=== PATIENT | male | born 1935 | race Caucasian/White ===

== ENCOUNTER 2025-03-25 14:16 | Inpatient (IN) | payer OTHER ==
[~2025-03-25] VITALS: Ht 165.1 cm; Wt 81.6 kg
--- NOTE | 2025-03-25 14:25 | NUR ---
SE RECIBE P[ACIENTE CONCIENTE, DESORIENTADO. PACIENTE ES TRAIDO EN AMBULANCIA ACOMPANADO POR FAMILIAR. FAMILIAR REFIERE QUE EL NICKIE DE FABIEN EN LA NOCHE LE FUE ADMINISTRADO POR PRIMERA VEZ EL MEDICAMENTO ATIVAN DE 1MG RECETADO POR SAUNDERS NEUROLOGO POR LA CONDICION DE ALZHEIMER. EL NICKIE DE HOY COMENZO A PRESENTAR UN CUADRO DE DESORIENTACION, DONDE NO SIGUE COMANDOS Y RESPONDE DE FORMA DESORGANIZADA A LOS ESTIMULOS. EL FAMILIAR SE COMUNICA CON NEUROLOGO DR. KAYLA BRINK, QUIEN LE ORIENTA ACUDIRA RUDY DE EMERGENCIAS. SE MIDEN SIGNOS VITALES. SE REFIERE PACIENTE PARA EVALUACION MEDICA. PACIENTE BAJO OBSERVACION CON CAMA BAJA Y BARANDAS ELEVADAS ACOMPANADO POR FAMILIAR.
[2025-03-25] MEDS ORDERED: CEFTRIAXONE SODIUM 1,000 MG VIAL ONE (15:52)
[2025-03-25] MEDS ORDERED: CEFTRIAXONE SODIUM 1,000 MG VIAL IV ONE (16:00)
[2025-03-25] MEDS ORDERED: 0.9 % SODIUM CHLORIDE 1,000 ML IV ONE (16:00)
--- NOTE | 2025-03-25 16:00 | NUR ---
SE ORIENTA PTE SOBRE TX MEDICO EL CUAL REFIERE ENTENDER.SE LE EXTRAEN MUESTRAS BAJO MEDIDAS ASEPTICAS,SE CANALIZA Y SE ADMINISTRA MEDICAMENTO IRA ORDEN MEDICA.SE NOTIFICA CT PENDIENTE.
[2025-03-25 16:35] LABS: BASO % 0.7 % (0.1-1.2); EOS # 0.27 (0.04-0.54); EOS % 3.8 % (0.7-7.0); LYMPH # 1.40 (1.18-3.74); LYMPH % 19.6 % (19.3-53.1); MEAN PLATELET VOLUME 9.50 fl (9.4-12.4); MONO # 0.62 (0.24-0.82); MONO % 8.7 % (4.7-12.5); NEUT # 4.81 (1.56-6.13); NEUT % 67.1 % (34.0-71.1); RED CELL DISTRIBUTION WIDTH 14.0 % (11.6-14.4)
[2025-03-25 17:04] LABS: INR 1.03
[2025-03-25 17:10] LABS: ALT/SGPT 25.0 U/L (12-78); AST/SGOT 22.0 U/L (15-37); BILIRUBIN TOTAL 0.8 mg/dL (0.3-1.2); BUN CREA RATIO 20.0 (7.0-25.0); CREATININE SERUM 0.99 mg/dL (0.70-1.30); GFR 71.18; GLOBULINA 3.3 G/DL (2.4-3.5); GLUCOSE FASTING 107.0 mg/dL (65-100); OSMOLALITY SERUM 290.0 MOSM/KG (275-295)
[2025-03-25 18:28] LABS: URINE APPEARANCE Clear; URINE BILIRRUBIN Negative (NEGATIVE); URINE BLOOD Small; URINE COLOR Yellow; URINE GLUCOSE Negative (NEGATIVE); URINE KETONE 15 (NEGATIVE); URINE LEUKOCYTE Negative; URINE NITRATE Negative; URINE PROTEIN Negative (NEGATIVE); URINE UROBILINOGEN 0.2 E.U./dl
[2025-03-25 18:32] LABS: URINE BACTERIA 86.4 uL (0.0-1933); URINE EPITHELIAL CELLS 10.4 uL (0.0-38.8); URINE RBC 31.3 uL (0.0-20.8); URINE WBC 72.4 uL (0.0-23.2)
[2025-03-25 18:41] LABS: URINE CAST 0.29 uL (0.0-1.40)
[2025-03-25] MEDS ORDERED: LEVALBUTEROL HCL 1.25 MG/3 ML SOLUTION IH SCH ×2 (19:11→21:55)
[2025-03-25] MEDS ORDERED: AZITHROMYCIN 500 MG VIAL IV ONE ×2 (19:15→20:02)
[2025-03-25] MEDS ORDERED: LEVALBUTEROL HCL 1.25 MG/3 ML SOLUTION IH ONE (20:16)
[2025-03-25 20:44] LABS: COVID-19 AG NEGATIVE (NEGATIVE)
[2025-03-25] MEDS ORDERED: IPRATROPIUM BROMIDE 0.5 MG/2.5 ML AMPUL.NEB IH SCH (21:54)
[2025-03-25] MEDS ORDERED: levoFLOXacin IN DEXTROSE 5 % 150 ML IV SCH (21:58)
[2025-03-25] MEDS ORDERED: MEMANTINE HCL 10 MG TABLET PO SCH (21:59)
[2025-03-25] MEDS ORDERED: FAMOTIDINE/PF 20 MG in 0.9 % SODIUM CHLORIDE 8 ML IV PUSH SCH (21:59)
[2025-03-25] MEDS ORDERED: METHYLPREDNISOLONE SOD SUCC 40 MG VIAL IV SCH (21:59)
[2025-03-25] MEDS ORDERED: ACETAMINOPHEN 500 MG GEL..CAP PO PRN (22:00)
[2025-03-25] MEDS ORDERED: 0.9 % SODIUM CHLORIDE 1,000 ML IV SCH (22:00)
[2025-03-25 23:54] VITALS: BP 151/80; O2SAT 96
[2025-03-26] MEDS ORDERED: FAMOTIDINE/PF 20 MG/2 ML VIAL ONE (00:28)
[2025-03-26] MEDS ORDERED: METHYLPREDNISOLONE SOD SUCC 40 MG VIAL ONE (00:28)
[2025-03-26] MEDS ORDERED: LEVALBUTEROL HCL 1.25 MG/3 ML SOLUTION IH ONE ×2 (00:35→08:38)
[2025-03-26] MEDS ORDERED: IPRATROPIUM BROMIDE 0.5 MG/2.5 ML AMPUL.NEB IH ONE ×2 (01:00→08:38)
[2025-03-26 01:06] LABS: INR 1.05
[2025-03-26] MEDS ORDERED: LEVOTHYROXINE SODIUM 25 MCG TABLET PO SCH (06:00)
[2025-03-26] MEDS ORDERED: LEVALBUTEROL HCL 1.25 MG/3 ML SOLUTION IH SCH (09:00)
[2025-03-26 10:52] VITALS: BP 128/60; O2SAT 100
[2025-03-26 17:01] VITALS: BP 105/50; O2SAT 94
[2025-03-26] MEDS ORDERED: DONEPEZIL HCL 10 MG TABLET PO NR (20:00)
[2025-03-27] MEDS ORDERED: 0.9 % SODIUM CHLORIDE 10 ML VIAL IJ ONE ×2 (01:52→08:34)
[2025-03-27 02:48] VITALS: BP 134/75; O2SAT 97
[2025-03-27] MEDS ORDERED: DONEPEZIL HCL 10 MG TABLET PO SCH (09:00)
[2025-03-27 09:12] VITALS: BP 122/66; O2SAT 98
== END 2025-03-27 12:16 | disposition home or self-care (01) | DRG 177 ==
LOC: ER 14:16 → SEC-K 22:32 → MEDI 03-26 12:29
PROVIDERS: General Practice; ADMIT Internal Medicine; ATTEND Internal Medicine
PROC: BW28ZZZ Computerized Tomography (CT Scan) of Head (ICD-10-PCS; principal; 2025-03-25)
PROC: BB24ZZZ Computerized Tomography (CT Scan) of Bilateral Lungs (ICD-10-PCS; 2025-03-25)
PROC: 3E0F7GC Introduction of Other Therapeutic Substance into Respiratory Tract, Via Natural or Artificial Opening (ICD-10-PCS; 2025-03-25)
DX: J69.0 Pneumonitis due to inhalation of food and vomit (principal); A41.9 Sepsis, unspecified organism; G92.8 Other toxic encephalopathy; R41.0 Disorientation, unspecified; G30.9 Alzheimer's disease, unspecified; F02.80 Dementia in other diseases classified elsewhere, unspecified severity, without behavioral disturbance, psychotic disturbance, mood disturbance, and anxiety; E03.9 Hypothyroidism, unspecified; J44.9 Chronic obstructive pulmonary disease, unspecified; I10 Essential (primary) hypertension; K21.9 Gastro-esophageal reflux disease without esophagitis